=== PATIENT | male | born 1990 | race African-American/Black ===

== ENCOUNTER 2020-12-02 10:36 | Emergency (ER) | payer OTHER ==
[~2020-12-02] VITALS: Ht 171.4 cm; Wt 75.6 kg
[2020-12-02 11:15] VITALS: BP 127/77
[2020-12-02 11:33] LABS: BILIRUBIN,URINE NEGATIVE (NEG); CLARITY,URINE CLEAR; COLOR,URINE YELLOW; NITRITE,URINE NEGATIVE (NEG); PROTEIN,URINE NEGATIVE (NEG-TRACE)
[2020-12-02 11:44] LABS: BACTERIA,URINE 0 /HPF (0-FEW); RBC,URINE OCC /HPF (0-2)
[2020-12-02] MEDS ORDERED: IBUP-1007 PO (11:46)
[2020-12-02] MEDS ORDERED: AZIT250T6 PO (11:46)
[2020-12-02] MEDS ORDERED: CYCL5TAB PO (11:47)
[2020-12-02] MEDS ORDERED: FLUT9.9S NS (11:47)
--- NOTE | 2020-12-02 11:47 | PHYS DOC ---
Past Medical History Past Medical History: No Pertinent History Past Surgical History: No Surgical History Alcohol Use: Occasionally Drug Use: Marijuana General Adult EDM: Chief Complaint: FLANK PAIN HPI: HPI: Patient is a 30 year old male who presents with for last 2 weeks he has had sinus congestion and sneezing. He states he is been taking [id number] allergy medicine but is not helping. He states he does have seasonal allergies. He states that he can't breathe out of his nose now. He also has a sinus headache. Patient also complains of bilateral lower back paraspinal aching. 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 He states he does not remember injuring his back. He denies any urinary symptoms, fever, dizziness, headache, abdominal pain, nausea, vomiting, blood in his urine, diarrhea, constipation, injury. He states when he is blows his nose now the mucus is a yellow color. Review of Systems: Review of Systems: Constitutional: Denies fever or chills. [] Eyes: Denies change in visual acuity. [] HENT: + nasal congestion or denies sore throat. [] Respiratory: Denies cough or shortness of breath. [] Cardiovascular: Denies chest pain or edema. [] GI: Denies abdominal pain, nausea, vomiting, bloody stools or diarrhea. [] : Denies dysuria. [] Musculoskeletal: + Bilateral lower back pain or joint pain. [] Integument: Denies rash. [] Neurologic: Denies headache, focal weakness or sensory changes. [] Endocrine: Denies polyuria or polydipsia. [] Lymphatic: Denies swollen glands. [] Psychiatric: Denies depression or anxiety. [] Heart Score: C/O Chest Pain: No Risk Factors: Risk Factors: DM, Current or recent (<one month) smoker, HTN, HLP, family h istory of CAD, obesity. Risk Scores: Score 0 - 3: 2.5% MACE over next 6 weeks - Discharge Home Score 4 - 6: 20.3% MACE over next 6 weeks - Admit for Clinical Observation Score 7 - 10: 72.7% MACE over next 6 weeks - Early Invasive Strategies Allergies: Allergies: Allergies Coded Allergies Type Severity Reaction Last Updated Verified No Known Drug Allergies 11/09/13 No Physical Exam: PE: Constitutional: Well developed, well nourished, no acute distress, non-toxic appearance. [] HENT: Normocephalic, atraumatic, bilateral external ears normal, oropharynx moist, no oral exudates, nose normal. Nasal congestion. [] Eyes: PERRLA, EOMI, conjunctiva normal, no discharge. [] Neck: Normal range of motion, no tenderness, supple, no stridor. [] Cardiovascular:Heart rate regular rhythm, no murmur [] Lungs & Thorax: Bilateral breath sounds clear to auscultation [] Abdomen: Bowel sounds normal, soft, no tenderness, no masses, no pulsatile masses. [] Skin: Warm, dry, no erythema, no rash. [] Back: No tenderness, no CVA tenderness. [] Extremities: No tenderness, no cyanosis, no clubbing, ROM intact, no edema. [] Neurologic: Alert and oriented X 3, normal motor function, normal sensory function, no focal deficits noted. [] Psychologic: Affect normal, judgement normal, mood normal. [] EKG: EKG: [] Radiology/Procedures: Radiology/Procedures: [] Course & Med Decision Making: Course & Med Decision Making Pertinent Labs and Imaging studies reviewed. (See chart for details) See HPI. Alert and oriented x4. Ambulatory with a steady gait. Speaks in full clear sentences. No CVA tenderness. Abdomen soft and nontender. Nasal congestion present. Throat is pink without exudates or swelling. States he is eating and drinking appropriately. He states that his lower back it hurts worse when he is just sitting but is better when he is up and moving. Denies radiation. There is no tenderness to his back and there is no focal bony spinal tenderness with palpation. He states he is not taking any medication for his back pain. He states he does not like taking any kind of pills. He has not tried Tylenol or ibuprofen. When I mentioned ibuprofen he stated that he didn't want to take it and that he would just ask his mom for some muscle relaxers. There is no deformity to his spine or bruising or swelling to his back. Again he denies any head injury that he knows of. Maxillary sinus tenderness with palpation. Denies any ear pain. Vital signs are within normal limits. Patient is to continue taking his sinus medicine at home and I will prescribe him an antibiotic. Patient agrees to the plan. [] Jane Disclaimer: Jane Disclaimer: This electronic medical record was generated, in whole or in part, using a voice recognition dictation system. Departure Departure Impression: Primary Impression: Nasal congestion Additional Impression: Low back pain Qualified Codes: M54.5 - Low back pain Disposition: HOME / SELF CARE / HOMELESS Condition: STABLE Referrals: NO PCP (PCP) Patient Instructions: Low Back Strain with [facility] Additional Instructions: Follow-up the primary care provider. Drink plenty of fluids. Take medication as prescribed and with food. Remember muscle medical of relaxers will make you sleepy. Use a heating pad and ibuprofen. Continue taking your allergy medication. Take all medication as prescribed. Scripts Fluticasone Propionate (Flonase Allergy Relief) 9.9 Ml [place].susp 2 SPRAYS NS DAILY, #1 ML Prov: PAMELA TIWARI APRN 12/02/20 Cyclobenzaprine Hcl (CYCLOBENZAPRINE HCL) 5 Mg Tablet 1 TAB PO TID, #15 TAB Prov: PAMELA TIWARI APRN 12/02/20 Ibuprofen (IBUPROFEN) 600 Mg Tablet 600 MG PO PRN Q6HRS PRN for INFLAMMATION, #20 TAB Prov: PAMELA TIWARI APRN 12/02/20 Azithromycin (AZITHROMYCIN TABLET) 250 Mg Tablet 1 PKG PO UD for 5 Days, #6 TAB 0 Refills 2 the first day followed by 1 for days 2-5 Prov: PAMELA TIWARI APRN 12/02/20 PAMELA TIWARI APRN December 02, 2020 11:47
== END 2020-12-02 12:08 | disposition home or self-care (01) ==
LOC: ER 10:36
DX: R09.81 Nasal congestion (principal); M54.5 Low back pain; R06.7 Sneezing; R51.9 Headache, unspecified
CPT/HCPCS: 81001; 99283